=== PATIENT | male | born 1965 | race Caucasian/White ===

== ENCOUNTER 2017-10-04 11:37 | Day surgery (SDC) | payer OTHER ==
[2017-10-04] MEDS ORDERED: TEMAZEPAM 15 MG CAP PO PRN (11:40)
[2017-10-04] MEDS ORDERED: DIAZEPAM 5 MG TAB PO ONE (11:40)
[2017-10-04] MEDS ORDERED: ASPIRIN EC 325 MG TAB PO ONE (11:40)
[2017-10-04] MEDS ORDERED: ACETAMINOPHEN 325 MG TAB PO PRN (11:40)
[2017-10-04] MEDS ORDERED: NS 1,000 ML IV SCH (11:40)
[2017-10-04] MEDS ORDERED: NITROGLYCERIN 0.4 MG BTL SL PRN (11:40)
[2017-10-04] MEDS ORDERED: FAMOTIDINE 20 MG/NACL 50 ML IV ONE (12:00)
--- NOTE | 2017-10-04 12:10 | CPEKG ---
Heart Rate: 60 RR Interval: 1000 P-R Interval: 140 QRSD Interval: 96 QT Interval: 436 QTC Interval: 436 P [place]: 45 QRS [place]: -36 T Wave [place]: 28 EKG Severity - BORDERLINE ECG - EKG Impression: SINUS RHYTHM EKG Impression: LEFT AXIS DEVIATION EKG Impression: BORDERLINE T ABNORMALITIES, ANTERIOR LEADS Electronically Signed By: Espinoza Cano 04-Oct-2017 16:52:39
[2017-10-04 12:29] LABS: PLATELET COUNT 216 10^3/uL (150-400)
[2017-10-04 12:42] LABS: INR 0.96 (0.83-1.16)
[2017-10-04] MEDS ORDERED: fentaNYL 100 MCG/2 ML INJ ONE (12:52)
[2017-10-04] MEDS ORDERED: LIDOCAINE 1% 300 MG/30 ML SDV ONE (12:52)
[2017-10-04] MEDS ORDERED: VERAPAMIL 5 MG/2 ML VIAL ONE (12:53)
[2017-10-04] MEDS ORDERED: MIDAZOLAM 2 MG/2 ML VIAL ONE (12:53)
[2017-10-04] MEDS ORDERED: IOPAMIDOL (ISOVUE 370) 100 ML BTL IV ONE (12:53)
[2017-10-04] MEDS ORDERED: HEPARIN 10,000 UNIT/10 ML MDV (1,000 UNIT/ML) ONE (12:53)
--- NOTE | 2017-10-04 12:54 | PDPROPOC ---
Sedation Plan of Care Sedation Plan of Care: vital signs stable, mental status noted, patient educated of risks, benefits, alternatives, patient can tolerate sedation ASA Classification: ASA 1 Planned drugs: fentanyl, midazolam Mallampati Score: Class 2 Mallampati Reference Image: Patient passed 3-3-2 rule?: Yes
--- NOTE | 2017-10-04 12:54 | PDHPUP ---
History & Physical Update H&P update statement: This history and physical update is based on an assessment of the patient which was completed after admission or registration (within 24 hours), but prior to the surgery/procedure. H&P update: H&P reviewed & patient examined, no change in patient's condition since H&P completed
[2017-10-04] MEDS ORDERED: FAMOTIDINE 20 MG in NS 100 ML IV ONE (13:00)
[2017-10-04] MEDS ORDERED: methylPREDNISolone SOD SUCC 125 MG/2 ML VIAL IVP ONE (13:00)
[2017-10-04] MEDS ORDERED: ONDANSETRON 4 MG/2 ML VIAL IVP PRN (13:54)
[2017-10-04] MEDS ORDERED: ATROPINE SULFATE 1 MG/10 ML SYR IVP PRN (13:54)
--- NOTE | 2017-10-04 13:58 | PDDXCAT ---
Diagnostic Cath Note - . Date: 10/04/17 Cushion Maker: Tameka Indication: CCC Class III and IV angina on medical treatment - Procedure Access: right wrist - Materials Left Heart Cath size: 5F Left Heart Cath materials: JL3.5, JR4.0, pigtail - Findings-Left Heart Catheterization LM: Large caliber. Bifurcates appropriately into the LAD and diagonal. Angiographically free of disease. LAD: Large caliber vessel. There is a single principal diagonal branches and several smaller insignificant diagonal branches. There are luminal irregularities in the distal vessel with no obstructive lesions. LCX: Large caliber vessel. Diminutive after the origin of a 2nd obtuse marginal branch. Minimal luminal irregularities with no obstructive lesions. RCA: Dominant. The PDA is identified. Diffuse luminal irregularities. Focal 40-50% mid PDA lesion. EDP: 18 mmHg. LVEF: 60-65%. Wall motion: Normal wall motion. Complications: None. Estimated blood loss: <50ml Closure method: TR Band Assessment: Minimal, diffuse nonobstructive atherosclerosis. Normal left ventricular systolic function without regional wall motion abnormalities. Plan: Evaluate for noncardiac etiologies to chest discomfort. Intervention: None.
[2017-10-04 17:04] VITALS: BP 141/87
== END 2017-10-04 17:20 | disposition home or self-care (01) ==
LOC: FCATH 11:37
PROVIDERS: ATTEND Internal Medicine Cardiovascular Disease
PROC: B2111ZZ Fluoroscopy of Multiple Coronary Arteries using Low Osmolar Contrast (ICD-10-PCS; principal; 2017-10-04)
PROC: B2151ZZ Fluoroscopy of Left Heart using Low Osmolar Contrast (ICD-10-PCS; principal; 2017-10-04)
PROC: 4A023N7 Measurement of Cardiac Sampling and Pressure, Left Heart, Percutaneous Approach (ICD-10-PCS; principal; 2017-10-04)
DX: I20.0 Unstable angina (principal); I70.90 Unspecified atherosclerosis
CPT/HCPCS: J1200; J1644; J2250; J2930; J3010; Q9967

== ENCOUNTER → 2018-02-07 | Outpatient (CLI) | payer BC, OTHER ==
[~2018-02-07] MED LIST: GADOBUTROL 10 ML VIAL IVP ONE
== END ==
LOC: FIMAGING 06:28
PROVIDERS: ATTEND Internal Medicine Cardiovascular Disease
DX: R00.2 Palpitations (principal); I47.1 Supraventricular tachycardia
CPT/HCPCS: 82565-PO; A9585